=== PATIENT | male | born 1950 | race Caucasian/White ===

== ENCOUNTER → 2023-05-03 | Outpatient (CLI) | payer MEDICARE | END | disposition home or self-care (01) | LOC: RESCLI 10:38 | PROVIDERS: ATTEND Internal Medicine | DX: E78.1 Pure hyperglyceridemia (principal); I25.10 Atherosclerotic heart disease of native coronary artery without angina pectoris; I10 Essential (primary) hypertension; G62.9 Polyneuropathy, unspecified; N40.0 Benign prostatic hyperplasia without lower urinary tract symptoms; E03.9 Hypothyroidism, unspecified; G47.33 Obstructive sleep apnea (adult) (pediatric); Z88.8 Allergy status to other drugs, medicaments and biological substances; Z98.890 Other specified postprocedural states; Z95.818 Presence of other cardiac implants and grafts; Z79.899 Other long term (current) drug therapy ==